=== PATIENT | male | born 1985 | race Caucasian/White ===

== ENCOUNTER 2019-07-12 09:35 | Emergency (ER) | payer MEDICAID ==
[2019-07-12] MEDS ORDERED: KETOROLAC 60 MG/2 ML VIAL IM ONE (11:26)
== END 2019-07-12 12:00 | disposition home or self-care (01) ==
LOC: MED 09:35
DX: S83.92XA Sprain of unspecified site of left knee, initial encounter (principal); F12.10 Cannabis abuse, uncomplicated; W11.XXXA Fall on and from ladder, initial encounter; Y93.89 Activity, other specified; Y92.099 Unspecified place in other non-institutional residence as the place of occurrence of the external cause; Y99.8 Other external cause status
CPT/HCPCS: 73562; 99283; Q0092; J1885